=== PATIENT | male | born 2000 | race Hispanic/Latino ===

== ENCOUNTER → 2021-08-29 | Outpatient (CLI) | payer OTHER | LOC: SLEEP 17:33 | PROVIDERS: ATTEND Internal Medicine | DX: G47.33 Obstructive sleep apnea (adult) (pediatric) (principal) | CPT/HCPCS: 95811 ==

== ENCOUNTER 2021-11-29 10:28 | Emergency (ER) | payer OTHER ==
[~2021-11-29] VITALS: Ht 157.5 cm; Wt 72.6 kg
== END 2021-11-29 12:05 | disposition home or self-care (01) ==
LOC: ER 10:36
DX: S92.351A Displaced fracture of fifth metatarsal bone, right foot, initial encounter for closed fracture (principal); X50.1XXA Overexertion from prolonged static or awkward postures, initial encounter; Y93.67 Activity, basketball; Y92.310 Basketball court as the place of occurrence of the external cause; Q90.9 Down syndrome, unspecified; F90.9 Attention-deficit hyperactivity disorder, unspecified type; G47.30 Sleep apnea, unspecified
CPT/HCPCS: 99284

== ENCOUNTER → 2021-11-29 | Emergency (ER) | payer OTHER | END | disposition left against medical advice (07) | LOC: ER 10:36 | DX: M79.673 Pain in unspecified foot (principal) ==

== ENCOUNTER → 2022-03-27 | Outpatient (CLI) | payer OTHER | LOC: RAD 10:54 | PROVIDERS: ATTEND Internal Medicine | DX: Z00.00 Encounter for general adult medical examination without abnormal findings (principal) | CPT/HCPCS: 71046 ==